=== PATIENT | female | born 1945 | race Caucasian/White ===

== ENCOUNTER → 2020-06-11 | Outpatient (CLI) | payer MEDICARE ==
[~2020-06-11] MED LIST: AMLO-150 PO; FERR-51 PO; LEVO125T5 PO; OLME40TA12 PO; ROSU10TA2 PO; SERT100T PO
[2020-06-11 14:21] LABS: MEAN CORPUSCULAR HGB CONC 31.2 g/dL (32.4-35.8); MEAN CORPUSCULAR VOLUME 73.6 fL (80-100); PLATELET COUNT 345 x10^3/uL (130-400); RED BLOOD COUNT 4.78 x10^6/uL (3.82-5.3); RED CELL DISTRIBUTION WIDTH 24.4 % (9.6-15.2)
[2020-06-11 14:22] LABS: MICROSCOPIC AUTO
[2020-06-11 14:27] LABS: ALBUMIN 3.4 g/dL (3.4-5.0); ANION GAP 4 mmol/L (5-15); CHLORIDE 109 mmol/L (98-107)
[2020-06-11 14:30] LABS: ALANINE AMINOTRANSFERASE 31 U/L (12-78); ALKALINE PHOSPHATASE 62 U/L (45-117); BILIRUBIN,TOTAL 0.3 mg/dL (0.2-1.0); CREATININE 1.03 mg/dL (0.55-1.02); TOTAL PROTEIN 6.9 g/dL (6.4-8.2)
[2020-06-11 14:53] LABS: BASOPHILS # (AUTO) 0.05 x10^3/uL (0-0.1); BASOPHILS % (AUTO) 1 % (0-1); EOSINOPHILS # (AUTO) 0.53 x10^3/uL (0-0.4); EOSINOPHILS % (AUTO) 7 % (1-7); LYMPHOCYTES # (AUTO) 1.77 x10^3/uL (1-3.4); LYMPHOCYTES % (AUTO) 22 % (22-44); MD MORPH REVIEW ONLY; MONOCYTES # (AUTO) 0.69 x10^3/uL (0.2-0.8); MONOCYTES % (AUTO) 9 % (2-9); NEUTROPHILS # (AUTO) 5.09 x10^3/uL (1.8-6.8); NEUTROPHILS % (AUTO) 63 % (42-75)
[2020-06-11 14:54] LABS: ANISOCYTOSIS 1+; HYPOCHROMIA 1+; MICROCYTOSIS 1+
[2020-06-11 14:55] LABS: <PLATELET ESTIMATE> ADEQUATE; <PLT MORPHOLOGY> NORMAL PLT MORPH; OVALOCYTES 1+; TEAR DROPS 1+
== END | disposition home or self-care (01) ==
LOC: STAR 13:11
PROVIDERS: ATTEND Obstetrics & Gynecology Gynecology
DX: Z01.818 Encounter for other preprocedural examination (principal); K44.9 Diaphragmatic hernia without obstruction or gangrene; N81.6 Rectocele; N39.3 Stress incontinence (female) (male); N81.10 Cystocele, unspecified
CPT/HCPCS: 36415; 71046; 80053; 81001; 85025; 87086; 93005

== ENCOUNTER → 2020-06-17 | Outpatient (CLI) | payer MEDICARE | END | disposition home or self-care (01) | LOC: STAR 15:11 | PROVIDERS: ATTEND Obstetrics & Gynecology Gynecology | DX: Z01.818 Encounter for other preprocedural examination (principal); Z11.59 Encounter for screening for other viral diseases | CPT/HCPCS: 36415; 87635 ==

== ENCOUNTER 2020-06-21 05:27 | Day surgery (SDC) | payer MEDICARE ==
[~2020-06-21] VITALS: Ht 175.3 cm; Wt 93.8 kg
[2020-06-21] MEDS ORDERED: LACTATED RINGERS 1,000 ML IV SCH (06:18)
[2020-06-21 06:21] VITALS: BP 135/83
[2020-06-21] MEDS ORDERED: CHLORHEXIDINE 15 ML UDC MM ONE (06:30)
[2020-06-21] MEDS ORDERED: FENTANYL PF 250 MCG/5ML ONE (06:51)
[2020-06-21] MEDS ORDERED: THROMBIN 5,000 UNIT VIAL TP ONE (06:54)
[2020-06-21] MEDS ORDERED: FUROSEMIDE 20 MG/2 ML ONE (06:54)
[2020-06-21] MEDS ORDERED: INDIGO CARMINE 0.8%, 5ML ONE (06:54)
[2020-06-21] MEDS ORDERED: LIDOCAINE 1%-EPI 1:100K, 20ML ONE ×2 (06:54→08:27)
[2020-06-21] MEDS ORDERED: NEOMY/POLYMYXIN B GU IRR. 1 ML ONE (06:59)
[2020-06-21] MEDS ORDERED: LIDOCAINE-MPF 1%, 2ML ONE (07:21)
[2020-06-21] MEDS ORDERED: KETOROLAC 30 MG/1 ML ONE (07:21)
[2020-06-21] MEDS ORDERED: CEFAZOLIN 1,000 MG ONE (07:21)
[2020-06-21] MEDS ORDERED: PROPOFOL 10 MG/ML, 50ML ONE (07:21)
[2020-06-21] MEDS ORDERED: GLYCOPYRROLATE 0.2MG/1ML, 5ML ONE (07:21)
[2020-06-21] MEDS ORDERED: ONDANSETRON 2MG/ML, 2ML ONE (07:21)
[2020-06-21] MEDS ORDERED: HYDROmorphone 1 MG/ML, 1ML INJ IVPush PRN (08:30)
[2020-06-21] MEDS ORDERED: ONDANSETRON 2MG/ML, 2ML IVPush PRN (08:30)
[2020-06-21] MEDS ORDERED: ACETAMINOPHEN 325 MG TABLET PO PRN (08:30)
[2020-06-21] MEDS ORDERED: LABETALOL 5MG/ML, 20ML IV PRN (08:30)
[2020-06-21] MEDS ORDERED: hydrALAzine 20 MG/ML, 1ML IV PRN (08:30)
[2020-06-21] MEDS ORDERED: ACETAMINOPHEN 650 MG/20.3 ML UDC ONE (09:11)
[2020-06-21] MEDS ORDERED: FENTANYL PF 100 MCG/2ML ONE (09:11)
[2020-06-21] MEDS ORDERED: OXYcodone 5 MG/5 ML ORAL.SOL UDC ONE (09:11)
[2020-06-21] MEDS: FENTANYL PF 100 MCG/2ML IV PRN ×2 (09:15→09:20)
[2020-06-21] MEDS: OXYcodone 5 MG/5 ML ORAL.SOL UDC PO PRN ×2 (09:15→13:26)
== END 2020-06-21 15:30 | disposition home or self-care (01) ==
LOC: OUT 05:27
PROVIDERS: ATTEND Obstetrics & Gynecology Gynecology
DX: N39.3 Stress incontinence (female) (male) (principal); N81.10 Cystocele, unspecified; N81.5 Vaginal enterocele; I10 Essential (primary) hypertension; E03.9 Hypothyroidism, unspecified; E78.5 Hyperlipidemia, unspecified; Z79.899 Other long term (current) drug therapy; Z98.890 Other specified postprocedural states; Z72.89 Other problems related to lifestyle
CPT/HCPCS: 57265; 57288; C1771; J0690; J1885; J2405; J2704; J3010; J3490; J7120; J1940